=== PATIENT | female | born 1970 | race Caucasian/White ===

== ENCOUNTER 2017-06-12 08:21 | Emergency (ER) | payer OTHER ==
[~2017-06-12] VITALS: Ht 167.6 cm; Wt 119.6 kg
[2017-06-12] MEDS ORDERED: SODIUM CHLORIDE 0.9% 1,000 ML IV ONE (09:10)
[2017-06-12] MEDS ORDERED: ASPIRIN 81 MG TABLET CHEW PO ONE (09:30)
[2017-06-12] MEDS ORDERED: SODIUM CHLORIDE FLUSH 10ML SYR IVF ONE (09:30)
[2017-06-12] MEDS ORDERED: MECLIZINE CHEWABLE 25 MG TAB PO ONE (09:30)
[2017-06-12] MEDS ORDERED: ONDANSETRON 2MG/ML, 2ML IVPush ONE (09:30)
[2017-06-12] MEDS ORDERED: ASPIRIN 81 MG TABLET CHEW ONE (09:46)
[2017-06-12] MEDS ORDERED: MECLIZINE CHEWABLE 25 MG TAB ONE (09:46)
[2017-06-12] MEDS ORDERED: ONDANSETRON 2MG/ML, 2ML ONE (09:46)
[2017-06-12 10:14] LABS: ASPARTATE AMINO TRANSFERASE 15 U/L (15-37); BLOOD UREA NITROGEN 13 mg/dL (7-18)
[2017-06-12 10:19] LABS: IS PT STATUS REG ER OR PRE ER? YES
[2017-06-12 10:24] LABS: HEMATOCRIT 41.4 % (34.6-47.8); HEMOGLOBIN 12.9 g/dL (11.7-16.4); WHITE BLOOD COUNT 10.5 x10^3/uL (3.4-10)
[2017-06-12 11:23] LABS: PATH.CAST-FLAG NOT PRESENT; SPERM-FLAG NOT PRESENT; SRC-FLAG NOT PRESENT; XTAL-FLAG NOT PRESENT; YLC-FLAG NOT PRESENT
[2017-06-12 11:27] VITALS: BP 127/82
== END 2017-06-12 11:30 | disposition home or self-care (01) ==
LOC: ED 09:47
DX: R42 Dizziness and giddiness (principal)
CPT/HCPCS: 36415; 70450; 71010; 80053; 81001; 83605; 84484; 85025; 85610; 85730; 87086; 93005; 96361; 96374; 99285; J2405; J7030